=== PATIENT | female | born 1930 | race Asian ===

== ENCOUNTER → 2017-01-11 | Outpatient (CLI) | payer OTHER ==
[~2017-01-11] MED LIST: ACAR50TA11 PO; AMLO-512 PO; ENAL5 PO; ESOM20CA31 PO; METO25 PO; MIRT15 PO; MISO100 PO; RALO60 PO; SIMV-260 PO
== END | disposition home or self-care (01) ==
LOC: RADPV 09:19
PROVIDERS: ATTEND Internal Medicine
DX: I70.0 Atherosclerosis of aorta (principal); I51.7 Cardiomegaly; R91.8 Other nonspecific abnormal finding of lung field
CPT/HCPCS: 71020